=== PATIENT | male | born 1980 | race African-American/Black ===

== ENCOUNTER → 2019-03-29 | Outpatient (CLI) | payer BC ==
[2019-03-29 07:30] LABS: Partial Thromboplastin Time 28.3 sec (22.0-30.0); Prothrombin Time 10.4 sec (9.0-12.0)
[2019-03-29 07:35] LABS: HGB 13.5 gm/dL (13.0-17.5); MCH 29.8 pg (25.0-35.0); MCHC 32.1 g/dL (31.0-37.0); MCV 92.9 fL (80.0-100.0); Platelet Count 307 k/uL (150-450); RBC 4.52 m/uL (4.30-5.90); RDW 12.6 % (11.5-15.5); WBC 4.8 k/uL (3.8-10.6)
[2019-03-29 11:42] LABS: African American GFR (CKD) 87.1 (60.0-200.0); Albumin 4.8 g/dL (3.80-4.90); Anion Gap 6.4 mmol/L (4.00-12.00); BUN/Creat Ratio 10.83 Ratio (12.00-20.00); Calcium 9.6 mg/dL (8.7-10.3); Carbon Dioxide 27.6 mmol/L (21.6-31.8); Chol/HDL Ratio 4.49; Globulin 2.4 g/dL (1.6-3.3); LDL Cholesterol,Calculated 129.2 mg/dL (0.0-131.0); Phosphorus 3.7 mg/dL (2.4-5.1); Total Bilirubin 0.4 mg/dL (0.3-1.2); Total Protein 7.2 g/dL (6.2-8.2); VLDL Calculation 20.8 mg/dL (5.00-40.00)
[2019-03-29 11:51] LABS: Ferritin 46.4 ng/mL (22.0-322.0)
[2019-03-29 11:56] LABS: Vitamin D 25 Hydroxy 9.4 ng/mL (30.0-100.0)
[2019-03-29 12:53] LABS: Hemoglobin A1C 4.6 % (4.0-6.0)
== END | disposition home or self-care (01) ==
LOC: LABWHC1 06:57
PROVIDERS: ATTEND Surgery Plastic and Reconstructive Surgery
DX: E21.1 Secondary hyperparathyroidism, not elsewhere classified (principal); E89.1 Postprocedural hypoinsulinemia; D50.9 Iron deficiency anemia, unspecified; K90.89 Other intestinal malabsorption; E55.9 Vitamin D deficiency, unspecified; K74.1 Hepatic sclerosis; N19 Unspecified kidney failure; K50.90 Crohn's disease, unspecified, without complications; E66.01 Morbid (severe) obesity due to excess calories
CPT/HCPCS: 36415; 80053; 80061; 82306; 82525; 82607; 82728; 82746; 83036; 83540; 83550; 83735; 83970; 84100; 84134; 84255; 84425; 84443; 84590; 84630; 85027; 85610; 85730

== ENCOUNTER → 2020-01-22 | Outpatient (CLI) | payer BC ==
[2020-01-22 13:10] LABS: HGB 13.3 gm/dL (13.0-17.5); MCH 29.1 pg (25.0-35.0); MCHC 31.5 g/dL (31.0-37.0); MCV 92.4 fL (80.0-100.0); Mean Platelet Volume 7.4; Platelet Count 300 k/uL (150-450); RBC 4.55 m/uL (4.30-5.90); RDW 12.7 % (11.5-15.5); WBC 5.2 k/uL (3.8-10.6)
[2020-01-22 20:09] LABS: % Iron Saturation 25.25 (15.00-50.00); African American GFR (CKD) 96.1 (60.0-200.0); Albumin 4.6 g/dL (3.80-4.90); Albumin/Globulin Ratio 1.77 (1.60-3.17); BUN/Creat Ratio 7.27 Ratio (12.00-20.00); Calcium 9.8 mg/dL (8.7-10.3); Chol/HDL Ratio 4.14; Globulin 2.6 g/dL (1.6-3.3); LDL Cholesterol,Calculated 96.8 mg/dL (0.0-131.0); Magnesium 1.9 mg/dL (1.5-2.4); Non-African American GFR(CKD) 82.9 (60.0-200.0); Phosphorus 2.8 mg/dL (2.4-5.1); Potassium 4.2 mmol/L (3.5-5.5); Total Bilirubin 0.5 mg/dL (0.3-1.2); Total Protein 7.2 g/dL (6.2-8.2); VLDL Calculation 13.2 mg/dL (5.00-40.00)
[2020-01-22 20:17] LABS: Ferritin 68.1 ng/mL (22.0-322.0)
[2020-01-22 20:41] LABS: Folate, Serum 17.6 ng/mL
[2020-01-23 01:51] LABS: Hemoglobin A1C 4.6 % (4.0-6.0)
[2020-01-23 14:08] LABS: Zinc, Serum 75 ug/dL (60-130)
[2020-01-24 05:43] LABS: Vitamin A 39 ug/dL (38-106)
== END | disposition home or self-care (01) ==
LOC: LABWHC1 11:23
PROVIDERS: ATTEND Surgery Plastic and Reconstructive Surgery
DX: E21.1 Secondary hyperparathyroidism, not elsewhere classified (principal); E89.1 Postprocedural hypoinsulinemia; D50.9 Iron deficiency anemia, unspecified; K90.89 Other intestinal malabsorption; E55.9 Vitamin D deficiency, unspecified; K74.1 Hepatic sclerosis; K50.90 Crohn's disease, unspecified, without complications; T56.894A Toxic effect of other metals, undetermined, initial encounter
CPT/HCPCS: 36415; 80053; 80061; 82306; 82525; 82607; 82728; 82746; 83036; 83540; 83550; 83735; 83970; 84100; 84134; 84255; 84425; 84443; 84590; 84630; 85027; 85610; 85730

== ENCOUNTER → 2020-11-27 | Outpatient (CLI) | payer BC ==
--- NOTE | 2020-11-27 14:50 | XR ---
EXAMINATION TYPE: XR chest 2V DATE OF EXAM: 11/27/2020 COMPARISON: NONE HISTORY: Wheezing, exposure to black mold TECHNIQUE: Frontal and lateral views of the chest are obtained. FINDINGS: There is no focal air space opacity, pleural effusion, or pneumothorax seen. The cardiac silhouette size is within normal limits. The osseous structures are intact. IMPRESSION: No acute cardiopulmonary process.
== END | disposition home or self-care (01) ==
LOC: RADXRMAIN 14:21
PROVIDERS: ATTEND Internal Medicine
DX: R06.2 Wheezing (principal)
CPT/HCPCS: 71046

== ENCOUNTER → 2021-03-10 | Outpatient (CLI) | payer BC ==
--- NOTE | 2021-03-10 13:19 | ECHOF ---
Referral Reason:R07.9 Chest Pain MEASUREMENTS -------- HEIGHT: 182.9 cm WEIGHT: 90.3 kg BP: RVIDd: 2.9 cm (< 3.3) IVSd: 1.2 cm (0.6 - 1.1) LVIDd: 4.5 cm (3.9 - 5.3) LVPWd: 1.1 cm (0.6 - 1.1) IVSs: 1.4 cm LVIDs: 3.4 cm LVPWs: 1.3 cm LAESV Index (A-L): 30.16 ml/m Ao Diam: 2.8 cm (2.0 - 3.7) AV Cusp: 1.8 cm (1.5 - 2.6) LA Diam: 3.9 cm (2.7 - 3.8) MV EXCURSION: 22.703 mm (> 18.000) MV EF SLOPE: 120 mm/s (70 - 150) EPSS: 0.2 cm MV E Mal: 0.73 m/s MV DecT: 177 ms MV A Mal: 0.64 m/s MV E/A Ratio: 1.14 RAP: 5.00 mmHg RVSP: 25.68 mmHg FINDINGS -------- Sinus rhythm. This was a technically good study. The left ventricular size is normal. There is borderline concentric left ventricular hypertrophy. Overall left ventricular systolic function is normal with, an EF between 55 - 60 %. The right ventricle is normal in size. LA is midly dilated 29-33ml/m2. The right atrial size is normal. The aortic valve is trileaflet, and appears structurally normal. No aortic stenosis or regurgitation. There is trace mitral regurgitation. Mild tricuspid regurgitation present. Right ventricular systolic pressure is normal at < 35 mmHg. There is no pulmonic regurgitation present. There is no pericardial effusion. CONCLUSIONS -------- 1. The left ventricular size is normal. 2. There is borderline concentric left ventricular hypertrophy. 3. Overall left ventricular systolic function is normal with, an EF between 55 - 60 %. 4. The right ventricle is normal in size. 5. LA is midly dilated 29-33ml/m2. 6. The right atrial size is normal. 7. The aortic valve is trileaflet, and appears structurally normal. No aortic stenosis or regurgitati on. 8. There is trace mitral regurgitation. 9. Mild tricuspid regurgitation present. 10. There is no pulmonic regurgitation present. 11. There is no pericardial effusion. [employer]IC: Kim Munoz RDCS
--- NOTE | 2021-03-11 11:54 | P.STRESS ---
- Stress Test Note Stress Test Results/Findings: Exam Performed: stress test Exam Date: 03/10/21 Reason for Exam: Chest Pain Height: 6 ft 2 in Weight: 90.265 kg Protocol: Luc Stage: 3 Duration of Exercise: 8:00 Resting Heart Rate: 59 Resting Blood Pressure: 123/72 Maximum Achieved Heart Rate: 166 Maximum Achieved Blood Pressure: 189/93 85% PMHR: 151 100% PMHR: 178 METS: 10.3 Technologist Comment: Stress Test Results/Findings: Patient underwent exercise stress EKG with a Luc protocol treadmill stress test. Patient exercised into Stage 3 for a total of 8 miniutes reaching a total of 10.3 METS. Patient's maximum heart rate was 166 which represented 88% age- predicted maximum heart rate. Stress EKG findings: At baseline patient's EKG showed normal sinus rhythm, normal axis, nosignificant ST or T wave abnormalities. At peak exercise, EKG showed no significant change from baseline. Conclusions: 1. Normal EKG response to exercise without evidence of inducible ischemia. 2. Good exercise capacity.
== END | disposition home or self-care (01) ==
LOC: RADNMMAIN 09:07
PROVIDERS: ATTEND Internal Medicine Interventional Cardiology
DX: I08.1 Rheumatic disorders of both mitral and tricuspid valves (principal)
CPT/HCPCS: 93017; 93306

== ENCOUNTER → 2021-04-02 | Outpatient (CLI) | payer BC ==
[2021-04-03 00:17] LABS: Chol/HDL Ratio 3.53 Ratio; HDL Cholesterol 46.4 mg/dL (40.00-60.00); LDL Cholesterol,Calculated 105.4 mg/dL (0.0-131.0); Triglycerides 61.1 mg/dL (0.00-149.00); VLDL Calculation 12.22 mg/dL (5.00-40.00)
== END | disposition home or self-care (01) ==
LOC: LABWHC1 15:56
PROVIDERS: ATTEND Nurse Practitioner Adult Health
DX: E78.5 Hyperlipidemia, unspecified (principal)
CPT/HCPCS: 36415; 80061

== ENCOUNTER → 2021-08-25 | Outpatient (CLI) | payer BC ==
[2021-08-25 13:02] LABS: Prothrombin Time 11.2 sec (9.0-12.0)
[2021-08-26 00:58] LABS: HCT 42.7 % (39.6-50.0); HGB 13.4 g/dL (13.0-17.0); MCH 28.9 pg (27.0-32.0); MCHC 31.4 g/dL (32.0-37.0); Mean Platelet Volume 10.4 fL (9.5-12.2); NRBC Per 100 WBC 0 /100 WBCS (0.0-0.0); Platelet Count 254 X 10*3/uL (140-440); RBC 4.64 X 10*6/uL (4.40-5.60); RDW 12.9 % (11.5-14.5)
[2021-08-26 01:00] LABS: Chol/HDL Ratio 3.91 Ratio; LDL Cholesterol,Calculated 100.7 mg/dL (0.0-131.0); Prealbumin 21.7 mg/dL (18.0-42.0); VLDL Calculation 13.24 mg/dL (5.00-40.00)
[2021-08-26 02:30] LABS: % Iron Saturation 30.17 (15.00-50.00); ALT 13 U/L (10-49); AST 15 U/L (14-35); African American GFR (CKD) 111.3 (60.0-200.0); Albumin 4.6 g/dL (3.8-4.9); Albumin/Globulin Ratio 1.78 (1.60-3.17); Alkaline Phosphatase 96 U/L (41-126); Blood Urea Nitrogen 8.5 mg/dL (9.0-27.0); Calcium 9.6 mg/dL (8.7-10.3); Carbon Dioxide 22.4 mmol/L (20.0-27.5); Chloride 104 mmol/L (96-109); Ferritin 90.9 ng/mL (22.0-322.0); Globulin 2.6 g/dL (1.6-3.3); Glucose 108 mg/dL (70-110); Iron 106 ug/dL (65-175); Magnesium 1.8 mg/dL (1.5-2.4); Non-African American GFR(CKD) 96.1 (60.0-200.0); Phosphorus 3.4 mg/dL (2.4-5.1); Potassium 3.9 mmol/L (3.5-5.5); Sodium 143 mmol/L (135-145); Total Iron Binding Capacity 351 ug/dL (228-460); Total Protein 7.1 g/dL (6.2-8.2)
[2021-08-26 13:00] LABS: Zinc, Serum 64 ug/dL (60-130)
[2021-08-27 08:32] LABS: Vitamin A 45 ug/dL (38-106)
== END | disposition home or self-care (01) ==
LOC: LABWHC1 12:11
PROVIDERS: ATTEND Surgery Plastic and Reconstructive Surgery
DX: Z12.5 Encounter for screening for malignant neoplasm of prostate (principal); E66.01 Morbid (severe) obesity due to excess calories; E89.1 Postprocedural hypoinsulinemia; D50.8 Other iron deficiency anemias; E44.1 Mild protein-calorie malnutrition; E55.9 Vitamin D deficiency, unspecified; K74.1 Hepatic sclerosis; T56.894A Toxic effect of other metals, undetermined, initial encounter
CPT/HCPCS: 36415; 80053; 80061; 82306; 82525; 82607; 82728; 82746; 83036; 83540; 83550; 83735; 83970; 84100; 84134; 84255; 84425; 84443; 84590; 84630; 85027; 85610; 85730